=== PATIENT | female | born 1995 | race Caucasian/White ===

== ENCOUNTER 2017-03-23 22:47 | Emergency (ER) | payer OTHER ==
[~2017-03-23] VITALS: Ht 162.6 cm; Wt 46.3 kg
[2017-03-23 22:52] VITALS: BP 110/53
[2017-03-23] MEDS ORDERED: DICYCLOMINE 20 MG/2 ML VIAL IM ONE (23:25)
[2017-03-23] MEDS ORDERED: LORazepam 0.5 MG TAB PO ONE (23:45)
[2017-03-24 00:04] VITALS: BP 108/68
== END 2017-03-24 00:04 | disposition home or self-care (01) ==
LOC: MED 22:47
DX: K52.9 Noninfective gastroenteritis and colitis, unspecified (principal)
CPT/HCPCS: 81002; 81025; 96372; 99283; J0500

== ENCOUNTER 2017-10-18 22:35 | Emergency (ER) | payer OTHER ==
[~2017-10-18] VITALS: Ht 162.6 cm; Wt 45.5 kg
[2017-10-18 22:43] VITALS: BP 108/75
--- NOTE | 2017-10-18 22:49 | NUR ---
PT TAKEN TO BED 11
--- NOTE | 2017-10-18 22:49 | NUR ---
21/F CAME IN W C/O BLOATING AND CONSTIPATION X 2 DAYS. PT REPORTS SHE FEELS BLOATED IMMEDIATELY AFTER EATING SMALL AMOUNT OF FOOD, ALSO REPORTS DIFFICULTS PASSING BM. ABD SOFT, ROUND, +TENDERNESS DIFFUSED, BS ACTIVE X4. DENIES N/V/D, FEVER/CHILLS. DENIES PMH
[2017-10-18] MEDS ORDERED: KETOROLAC 15 MG/ML VIAL IM ONE (23:40)
[2017-10-19 00:20] LABS: BASOPHILS % (AUTO) 0.3 % (0.0-2.0); EOSINOPHILS % (AUTO) 0.7 % (0.0-4.0); HEMOGLOBIN 10.8 g/dL (12.0-16.0); LYMPHOCYTES % (AUTO) 14.4 % (20.5-51.1); MEAN CORPUSCULAR HEMOGLOBIN 23 pg (27-31); MEAN CORPUSCULAR HGB CONC 32 g/dL (33-37); MEAN CORPUSCULAR VOLUME 73.8 fL (80-94); MONOCYTES # (AUTO) 0.5 K/uL (0.8-1.0); MONOCYTES % (AUTO) 7.3 % (1.7-9.3); NEUTROPHILS # (AUTO) 5.6 K/uL (1.8-7.7); NEUTROPHILS % (AUTO) 77.3 % (42.2-75.2); PLATELET COUNT (AUTO) 155 K/uL (140-450); RED BLOOD CELL COUNT(AUTO) 4.61 MIL/uL (4.20-5.40); RED CELL DISTRIBUTION WIDTH 21.6 % (11.6-13.7); WHITE BLOOD COUNT (AUTO) 7.2 K/uL (4.8-10.8)
[2017-10-19 00:38] LABS: ANION GAP 11.5 (8-16); CARBON DIOXIDE 29.3 mmol/L (21-32); CREATININE 0.6 mg/dL (0.6-1.3); POTASSIUM 3.8 mmol/L (3.5-5.1)
[2017-10-19 00:44] LABS: ALBUMIN 4.5 g/dL (3.4-5.0); TOTAL BILIRUBIN 1.2 mg/dL (0.0-1.0)
--- NOTE | 2017-10-19 00:55 | NUR ---
Patient discharged with v/s stable. Written and verbal after care instructions given and explained. Patient alert, oriented and verbalized understanding of instructions. Ambulatory with steady gait. All questions addressed prior to discharge. ID band removed. Patient advised to follow up with PMD. Rx of IBUPROFEN, AND BENTYL given. Patient educated on indication of medication including possible reaction and side effects. Opportunity to ask questions provided and answered.
[2017-10-19 00:58] VITALS: BP 128/71
== END 2017-10-19 00:55 | disposition home or self-care (01) ==
LOC: MED 22:35
DX: K59.00 Constipation, unspecified (principal)
CPT/HCPCS: 36415; 74018; 80053; 81002; 81025; 85025; 96372; 99285; J1885; Q0092

== ENCOUNTER 2018-08-24 21:35 | Emergency (ER) | payer OTHER ==
[~2018-08-24] VITALS: Ht 162.6 cm; Wt 47.2 kg
[2018-08-24 21:41] VITALS: BP 137/91
--- NOTE | 2018-08-24 21:41 | NUR ---
PT AMBULATED TO BED WITH FATHER
--- NOTE | 2018-08-24 21:57 | NUR ---
22 Y/O F PRESENTED TO ED WITH C/O LLQ ABDOMINAL PAIN X1 WEEK. 7/10 PAIN, BURNING SENSATION. PAIN DOES NOT RADIATE. ABDOMEN NON-TENDER. DENIES N/V/D. DENIES HEMATURIA OR FLANK PAIN. FAMILY AT BEDSIDE. ERMD NOTIFIED. WILL CONTINUE TO MONITOR.
[2018-08-24 23:25] VITALS: BP 119/76
--- NOTE | 2018-08-24 23:25 | NUR ---
Patient discharged with v/s stable. Written and verbal after care instructions given and explained. Patient alert, oriented and verbalized understanding of instructions. Ambulatory with steady gait. All questions addressed prior to discharge. ID band removed. Patient advised to follow up with PMD. Rx of MINERAL OIL, MIRALAX given. Patient educated on indication of medication including possible reaction and side effects. Opportunity to ask questions provided and answered.
== END 2018-08-24 23:25 | disposition home or self-care (01) ==
LOC: MED 21:35
DX: K59.00 Constipation, unspecified (principal); R50.9 Fever, unspecified; F32.9 Major depressive disorder, single episode, unspecified; F41.9 Anxiety disorder, unspecified
CPT/HCPCS: 74022; 81002; 81025; 99283

== ENCOUNTER 2019-05-01 15:40 | Emergency (ER) | payer OTHER ==
[~2019-05-01] VITALS: Ht 162.6 cm; Wt 49.9 kg
--- NOTE | 2019-05-01 15:48 | NUR ---
PT TO ER BED 6
[2019-05-01 15:51] VITALS: BP 126/91
[2019-05-01] MEDS ORDERED: LIDOCAINE MPF 1% 10 MG/ML VIAL INJ ONE (15:55)
[2019-05-01] MEDS ORDERED: ACETAMINOPHEN 325 MG TAB PO ONE (15:55)
--- NOTE | 2019-05-01 15:59 | NUR ---
SUTURE SETUP AND LIDOCAINE AT BEDSIDE
--- NOTE | 2019-05-01 15:59 | NUR ---
TYLENOL PO ADMINISTERED
--- NOTE | 2019-05-01 16:01 | NUR ---
PT WHILE CUTTING CHEESE CUT HERSELF . NO ACTIVE BLEEDING AT THIS TIME AND NO LIMITATION ROM OF LT THUMB AND SENSATION INTACT.PT AWAKE , ALERT AND AMBULATORY WITH STEADY GAIT. PMHX NONE
--- NOTE | 2019-05-01 16:09 | NUR ---
FLORY NOBLE AT BEDSIDE DOING SUTURING.
[2019-05-01 16:30] VITALS: BP 126/88
--- NOTE | 2019-05-01 16:30 | NUR ---
Patient discharged with v/s stable. Written and verbal after care instructions given and explained regarding lacerated wound. Patient alert, oriented and verbalized understanding of instructions. Ambulatory with steady gait. All questions addressed prior to discharge. ID band removed. Patient advised to follow up with PMD. Rx of ibuprofen and bacitracin ointment given. Patient educated on indication of medication including possible reaction and side effects. Opportunity to ask questions provided and answered.
== END 2019-05-01 16:30 | disposition home or self-care (01) ==
LOC: MED 15:40
DX: S61.412A Laceration without foreign body of left hand, initial encounter (principal); W26.0XXA Contact with knife, initial encounter; Y93.89 Activity, other specified; Y92.89 Other specified places as the place of occurrence of the external cause; Y99.8 Other external cause status
CPT/HCPCS: 12001; 99283; J2001

== ENCOUNTER 2020-07-12 15:24 | Emergency (ER) | payer OTHER ==
[~2020-07-12] VITALS: Ht 162.6 cm; Wt 52.2 kg
[2020-07-12 15:41] VITALS: BP 109/71
[2020-07-12] MEDS ORDERED: CEPH-588 PO (16:08)
[2020-07-12 16:37] VITALS: BP 109/71
== END 2020-07-12 16:37 | disposition home or self-care (01) ==
LOC: MED 15:24
DX: S80.861A Insect bite (nonvenomous), right lower leg, initial encounter (principal); I51.9 Heart disease, unspecified; W57.XXXA Bitten or stung by nonvenomous insect and other nonvenomous arthropods, initial encounter; Y93.89 Activity, other specified; Y92.89 Other specified places as the place of occurrence of the external cause; Y99.8 Other external cause status
CPT/HCPCS: 99283

== ENCOUNTER 2021-02-19 20:54 | Emergency (ER) | payer OTHER ==
[~2021-02-19] VITALS: Ht 160 cm; Wt 49.9 kg
[~2021-02-19 20:54] MED LIST: CEPH-588 PO
[2021-02-19 21:16] VITALS: BP 108/80
--- NOTE | 2021-02-19 21:19 | NUR ---
TO LOBBY A/W BED AMBULATORY
[2021-02-19] MEDS ORDERED: MAGNESIUM CITRATE 300 ML BTL PO ONE (23:45)
--- NOTE | 2021-02-20 00:40 | NUR ---
Patient discharged with v/s stable. Written and verbal after care instructions given and explained. Patient verbalized understanding. Ambulatory with steady gait. All questions addressed prior to discharge. Advised to follow up with PMD.
== END 2021-02-20 00:40 | disposition home or self-care (01) ==
LOC: MED 20:54
DX: K59.00 Constipation, unspecified (principal); I51.9 Heart disease, unspecified
CPT/HCPCS: 74018; 81002; 81025; 99283